=== PATIENT | male | born 2000 | race Two or more races ===

== ENCOUNTER 2022-08-05 15:35 | Outpatient (CLI) | payer OTHER, SELFPAY ==
[2022-08-05 16:58] LABS: Potassium* 4.2 mmol/L (3.6-5.1)
[2022-08-05 17:00] LABS: Cholesterol* 171 mg/dL (90-199)
[2022-08-05 17:01] LABS: Alanine Aminotransferase* 29 U/L (4-50); Aspartate Amino Transferase* 37 U/L (12-35); Blood Urea Nitrogen* 13 mg/dL (5-24); Creatinine* 0.7 mg/dL (0.5-1.5); Estimated Glomerular Filt Rate 135 ml/min; HDL Cholesterol* 52 mg/dL (>=40); LDL Cholesterol Calculated 79 mg/dL (<100); Triglycerides* 198 mg/dL (40-149)
[2022-08-07 12:56] LABS: Estradiol Premenol Female 22 pg/mL
[2022-08-13 13:09] LABS: Sex Hormone Binding Globulin 16 nmol/L (17-56); Testosterone, Free LC-MS/MS 81.2 pg/mL (47.0-244.0); Testosterone, LC-MS/MS 328 ng/dL (300-1080)
== END 2022-08-05 15:36 | disposition home or self-care (01) ==
PROVIDERS: Visit Provider Registered Nurse
DX: F64.9 Gender identity disorder, unspecified (principal)
CPT/HCPCS: 80061; 82565; 82670; 84132; 84270; 84402; 84403; 84450; 84460; 84520

== ENCOUNTER 2022-11-07 15:40 | Outpatient (CLI) | payer OTHER, SELFPAY ==
[2022-11-07 17:32] LABS: Potassium* 4.1 mmol/L (3.6-5.1)
[2022-11-07 17:35] LABS: Alanine Aminotransferase* 18 U/L (4-50); Aspartate Amino Transferase* 25 U/L (12-35)
[2022-11-09 19:15] LABS: Estradiol Premenol Female 37 pg/mL
[2022-11-14 08:54] LABS: Sex Hormone Binding Globulin 19 nmol/L (17-56); Testosterone, Free LC-MS/MS 58.4 pg/mL (47.0-244.0); Testosterone, LC-MS/MS 255 ng/dL (300-1080)
== END 2022-11-07 15:41 | disposition home or self-care (01) ==
PROVIDERS: Visit Provider Registered Nurse
DX: R74.8 Abnormal levels of other serum enzymes (principal); F64.9 Gender identity disorder, unspecified
CPT/HCPCS: 82670; 84132; 84270; 84402; 84403; 84450; 84460

== ENCOUNTER 2023-01-13 15:01 | Outpatient (CLI) | payer OTHER, SELFPAY | END 2023-01-13 15:02 | disposition home or self-care (01) | PROVIDERS: Visit Provider Registered Nurse | DX: F64.9 Gender identity disorder, unspecified (principal) | CPT/HCPCS: 80061; 82670; 84132; 84270; 84402; 84403 ==

== ENCOUNTER 2023-05-06 10:40 | Outpatient (CLI) | payer OTHER, SELFPAY | END 2023-05-06 10:41 | disposition home or self-care (01) | PROVIDERS: Visit Provider Registered Nurse | DX: F64.9 Gender identity disorder, unspecified (principal) | CPT/HCPCS: 82670; 84132; 84270; 84402; 84403 ==

== ENCOUNTER 2023-09-01 14:48 | Outpatient (CLI) | payer OTHER, SELFPAY | END 2023-09-01 14:49 | disposition home or self-care (01) | PROVIDERS: Visit Provider Registered Nurse | DX: F64.9 Gender identity disorder, unspecified (principal) | CPT/HCPCS: 82670; 84132; 84270; 84402; 84403 ==

== ENCOUNTER 2023-10-05 11:09 | Outpatient (CLI) | payer OTHER, SELFPAY | END 2023-10-05 11:10 | disposition home or self-care (01) | LOC: NFLDREF 10-06 12:22 | PROVIDERS: Visit Provider Registered Nurse | DX: F64.9 Gender identity disorder, unspecified (principal) | CPT/HCPCS: 84132; 84270; 84402; 84403 ==

== ENCOUNTER 2024-04-12 14:37 | Outpatient (CLI) | payer OTHER, SELFPAY | END 2024-04-12 14:38 | disposition home or self-care (01) | PROVIDERS: PCP Registered Nurse; Visit Provider Registered Nurse | DX: F64.9 Gender identity disorder, unspecified (principal); Z79.899 Other long term (current) drug therapy | CPT/HCPCS: 82670; 84132; 84270; 84402; 84403 ==

== ENCOUNTER 2024-12-20 14:51 | Outpatient (CLI) | payer OTHER, SELFPAY | END 2024-12-20 14:52 | disposition home or self-care (01) | PROVIDERS: Visit Provider Registered Nurse | DX: F64.9 Gender identity disorder, unspecified (principal); Z79.890 Hormone replacement therapy | CPT/HCPCS: 82565; 82670; 84132; 84270; 84402; 84403; 84520 ==

== ENCOUNTER 2025-05-04 16:00 | Outpatient (CLI) | payer OTHER, SELFPAY | END 2025-05-04 16:01 | disposition home or self-care (01) | LOC: NFLDREF 05-09 06:14 | PROVIDERS: Visit Provider Registered Nurse | DX: F64.9 Gender identity disorder, unspecified (principal); Z13.9 Encounter for screening, unspecified | CPT/HCPCS: 80076; 82670; 84132; 84270; 84402; 84403 ==

== ENCOUNTER 2025-05-18 15:08 | Outpatient (CLI) | payer OTHER, SELFPAY | END 2025-05-18 15:09 | disposition home or self-care (01) | LOC: NFLDREF 05-20 18:54 | PROVIDERS: Visit Provider Registered Nurse | DX: R74.8 Abnormal levels of other serum enzymes (principal); Z11.59 Encounter for screening for other viral diseases | CPT/HCPCS: 80076; 82728; 83540; 83550; 86704; 86706; 86803; 87340 ==